=== PATIENT | female | born 1960 | race Caucasian/White ===

== ENCOUNTER 2020-03-25 16:33 | Emergency (ER) | payer MEDICAID, OTHER ==
[~2020-03-25] VITALS: Ht 160 cm; Wt 102.1 kg
[2020-03-25 17:00] VITALS: BP 142/84
[2020-03-25] MEDS ORDERED: cefTRIAXone SOD 1,000 MG VL IM ONE (18:00)
[2020-03-25] MEDS ORDERED: methylPREDNISolone SOD SUCC 125 MG/2 ML VL IM ONE (18:00)
== END 2020-03-25 18:35 | disposition home or self-care (01) ==
LOC: ER 16:33
DX: U07.1 COVID-19 (principal); J12.82 Pneumonia due to coronavirus disease 2019; J45.909 Unspecified asthma, uncomplicated; I10 Essential (primary) hypertension; F17.210 Nicotine dependence, cigarettes, uncomplicated
CPT/HCPCS: 36415; 71045; 87426; 96372; 99284; J0696; J2930

== ENCOUNTER 2023-09-28 20:10 | Emergency (ER) | payer MEDICAID, OTHER ==
[~2023-09-28] VITALS: Ht 157.5 cm; Wt 120.0 kg
[2023-09-28 21:36] LABS: Basophils # (auto) 0.1 10 ^3/uL (0-0.2); Basophils % (auto) 0.5 % (0.0-2.0); Eosinophils # (auto) 0.3 10 ^3/uL (0-0.8); Eosinophils % (auto) 2.5 % (0.0-7.0); Hematocrit 36.1 % (36.0-46.0); Hemoglobin 12.2 g/dL (12.2-16.2); Lymphocytes # (auto) 1.5 10 ^3/uL (0.4-5.4); Lymphocytes % (auto) 12.7 % (10.0-50.0); Mean Corpuscular Hemoglobin 27.6 pg (28.0-32.0); Mean Corpuscular Hgb Conc. 33.7 g/dL (32.0-36.0); Mean Corpuscular Volume 81.8 fL (80.0-100.0); Monocytes # (auto) 0.7 10 ^3/uL (0-1.3); Monocytes % (auto) 6.4 % (0.0-12.0); Neutrophils # (auto) 9.1 10 ^3/uL (1.6-8.6); Neutrophils % (auto) 77.9 % (37.0-80.0); Red Blood Cells 4.42 10^6/uL (4.0-5.20); Red Cell Distribution Width 15.2 % (11.8-14.3); White Blood Cell 11.7 10^3/uL (4.4-10.8)
[2023-09-28 21:53] LABS: Albumin 3.6 g/dL (3.2-4.8); Alkaline Phosphatase 102 U/L (46-116); Anion Gap 16 (5-15); Aspartate Aminotransferase 10 U/L (13-40); Bilirubin, Total 0.4 mg/dL (0.2-1.0); Blood Urea Nitrogen 21 mg/dL (9-23); Carbon Dioxide 15 mmol/L (20-30); Chloride 109 mmol/L (98-107); Glucose 108 mg/dL (74-106); Potassium 2.8 mmol/L (3.5-5.1); Sodium 140 mmol/L (136-145)
[2023-09-28 22:01] LABS: Alanine Aminotransferase < 9 U/L (7-40)
[2023-09-28] MEDS: HYDROcodone-ACET 10/325MG TAB PO ONE (22:09)
[2023-09-29] MEDS: POTASSIUM EFFERVESENT TAB 25 MEQ PO ONE (04:41)
[2023-09-29] MEDS: POTASSIUM CHL 20MEQ/100ML 100 ML IV SCH (04:52)
[2023-09-29 04:55] LABS: Urine Amorphous Crystal FEW /hpf (None Seen); Urine Bacteria FEW /hpf (None Seen); Urine Blood Negative /uL (Negative); Urine Protein, UAD 3+ (Negative); Urine Specific Gravity 1.016 (1.001-1.035); Urine Urobilinogen Normal (Negative); Urine WBC 83 /hpf (0 - 5)
[2023-09-29 05:14] LABS: Urine Color Yellow (Yellow)
[2023-09-29 05:15] LABS: Urine Clarity Cloudy (Clear)
[2023-09-29 08:00] VITALS: PULSE 74; RESP 14; O2SAT 97
[2023-09-29] MEDS: HYDROcodone-ACET 10/325MG TAB PO ONE (10:27)
[2023-09-29] MEDS: levoFLOXacin 500MG 100 ML IV SCH (12:09)
[2023-09-29] MEDS: SODIUM CHLORIDE 0.9% 1,000 ML IV ONE (13:00)
[2023-09-29 14:13] LABS: Chloride 109 mmol/L (98-107); Potassium 3.2 mmol/L (3.5-5.1); Sodium 141 mmol/L (136-145)
[2023-09-29 14:14] LABS: Anion Gap 9 (5-15); Calcium 8.6 mg/dL (8.7-10.4); Carbon Dioxide 23 mmol/L (20-30)
[2023-09-29] MEDS: LORazepam 2MG/ML-1ML VIAL IV ONE (14:14)
[2023-09-29 14:19] LABS: BUN/Creatinine Ratio 10.7 (10.0-20.0); Blood Urea Nitrogen 16 mg/dL (9-23); Glucose 112 mg/dL (74-106)
[2023-09-29] MEDS: LORazepam 2MG/ML-1ML VIAL ONE (14:24)
[2023-09-29] MEDS ORDERED: SODIUM CHLORIDE 0.9% IV ONE (14:45)
[2023-09-29] MEDS ORDERED: SODIUM CHL 0.9% IV ONE (14:45)
[2023-09-29] MEDS: SODIUM CHLORIDE 0.9% 1,500 ML IV ONE (15:00)
[2023-09-29] MEDS: amLODIPine BESYLATE 5 MG TAB PO ONE (15:11)
[2023-09-29] MEDS: hydrALAZINE HCL 20 MG/ML VL IV ONE ×2 (15:11→19:11)
[2023-09-29] MEDS: MAGNESIUM SULFATE 1GM/100ML 100 ML IV SCH (18:02)
[2023-09-29 18:29] LABS: Chloride 107 mmol/L (98-107); Potassium 3.1 mmol/L (3.5-5.1); Sodium 142 mmol/L (136-145)
[2023-09-29 18:30] LABS: Anion Gap 11 (5-15); Carbon Dioxide 24 mmol/L (20-30)
[2023-09-29 18:31] LABS: Calcium 8.5 mg/dL (8.7-10.4)
[2023-09-29 18:35] LABS: BUN/Creatinine Ratio 9.9 (10.0-20.0); Blood Urea Nitrogen 15 mg/dL (9-23); Glucose 114 mg/dL (74-106)
[2023-09-29] MEDS: HYDROcodone-ACET 10/325MG TAB PO PRN (18:53)
[2023-09-29] MEDS: ONDANSETRON HCL 4 MG/2 ML VIAL IV ONE (18:54)
[2023-09-29] MEDS ORDERED: hydrALAZINE HCL 20 MG/ML VL IV PRN (19:30)
[2023-09-29] MEDS: POTASSIUM CHL 20MEQ/100ML 100 ML IV ONE (19:30)
[2023-09-29] MEDS: SODIUM CHLORIDE 0.9% 500 ML IV ONE (21:11)
[2023-09-29 23:29] VITALS: BP 143/80; PULSE 98; RESP 20; TEMP 98.3; O2SAT 96
[2023-09-30] MEDS ORDERED: levoFLOXacin 250 MG TAB PO SCH (10:00)
== END 2023-09-29 22:17 | disposition short-term general hospital (02) ==
LOC: EDUNIT# 20:10 → ER 20:10 → EDBD 20:10 → ER 09-29 22:17
DX: M41.86 Other forms of scoliosis, lumbar region (principal); R53.1 Weakness; E87.6 Hypokalemia; D72.829 Elevated white blood cell count, unspecified; R79.1 Abnormal coagulation profile; J45.909 Unspecified asthma, uncomplicated; M54.50 Low back pain, unspecified; I10 Essential (primary) hypertension; F17.210 Nicotine dependence, cigarettes, uncomplicated; Z88.0 Allergy status to penicillin; Z88.6 Allergy status to analgesic agent
CPT/HCPCS: 36415; 72131; 80048; 80053; 81001; 83735; 83880; 84484; 85025; 85379; 93005; 96361; 96365; 96366; 96367; 96375; 99285; J0360; J1956; J2060; J3475; J3480; J7030; J7040; 72148; 93970